=== PATIENT | female | born 1975 | race Caucasian/White ===

== ENCOUNTER 2018-05-20 14:13 | Emergency (ER) | payer BC, SELFPAY ==
[2018-05-20 14:15] VITALS: BP 162/96; PULSE 86; RESP 16; TEMP 36.8; O2SAT 98; BMI 33.2
--- NOTE | 2018-05-20 14:43 | RAD_ITS ---
STUDY: X-RAY - LEFT ELBOW REASON FOR EXAM: Female, 42 years old. Pain TECHNIQUE: 3 view(s) of the elbow. COMPARISON: None. FINDINGS: Normal visualized humerus, radius and ulna. Normal radiocapitellar and ulnotrochlear articulations. The soft tissue structures are unremarkable. RAD/Elbow min 3 Views IMPRESSION: Normal x-ray examination of the elbow. Electronically Signed: Ranjeet Baig MD at 15:28 EST , Service support ,
--- NOTE | 2018-05-20 14:43 | CT_ITS ---
STUDY: CT CERVICAL SPINE WITHOUT CONTRAST REASON FOR EXAM: Female, 42 years old. Neck pain after trauma RADIATION DOSAGE (If Supplied By Facility): CTDIvol = ( 23.88 ) mGy, DLP = ( 493.45 ) mGycm TECHNIQUE: High resolution transaxial imaging was performed without contrast material. Sagittal and coronal images were reconstructed. Individualized dose optimization techniques were used for this CT. COMPARISON: None FINDINGS: Normal craniovertebral junction. Normal anterior atlantoaxial articulation. Normal odontoid process. There is straightening of the normal cervical lordosis. Normal vertebral bodies and posterior osseous elements. C2-3: Normal endplates. Normal disc height and morphology. Normal central canal and intervertebral neuroforamina. C3-4: Normal endplates. Normal disc height and morphology. Normal central canal and intervertebral neuroforamina. C4-5: Normal endplates. Normal disc height and morphology. Normal central canal and intervertebral neuroforamina. C5-6: Normal endplates. Normal disc height and morphology. Normal central canal and intervertebral neuroforamina. C6-7: Normal endplates. Normal disc height and morphology. Normal central canal and intervertebral neuroforamina. C7-T1: Normal endplates. Normal disc height and morphology. Normal central canal and intervertebral neuroforamina. Normal visualized soft tissue structures. CT/Spine Cervical without Contras IMPRESSION: Normal unenhanced CT examination of the cervical spine. Electronically Signed: Ranjeet Baig MD at 15:27 EST , Service support ,
--- NOTE | 2018-05-20 14:43 | CT_ITS ---
STUDY: CT LUMBAR SPINE WITHOUT CONTRAST REASON FOR EXAM: Female, 42 years old. Low back pain after a fall RADIATION DOSAGE (If Supplied By Facility): CTDIvol = ( 20.87 ) mGy, DLP = ( 689.78 ) mGycm TECHNIQUE: The patient was scanned in a multi detector CT scanner. High resolution transaxial imaging was performed. Images were obtained from mid T11 to the lower coccyx. Sagittal and coronal images were reconstructed. Individualized dose optimization techniques were used for this CT. COMPARISON: None FINDINGS: Normal lumbar lordosis. There is no substantial scoliosis. Normal vertebrae of the lumbar spine. L1-2: Normal endplates. Normal disc height and morphology. Normal bilateral facet joints. Normal central canal and bilateral lateral recesses. Normal bilateral intervertebral neural foramina. L2-3: Normal endplates. Normal disc height and morphology. Normal bilateral facet joints. Normal central canal and bilateral lateral recesses. Normal bilateral intervertebral neural foramina. L3-4: Normal endplates. Normal disc height and morphology. Normal bilateral facet joints. Normal central canal and bilateral lateral recesses. Normal bilateral intervertebral neural foramina. L4-5: Normal endplates. Normal disc height and morphology. Normal bilateral facet joints. Normal central canal and bilateral lateral recesses. Normal bilateral intervertebral neural foramina. L5-S1: Normal endplates. Normal disc height and morphology. Normal bilateral facet joints. Normal central canal and bilateral lateral recesses. Normal bilateral intervertebral neural foramina. Normal visualized paraspinous soft tissue structures. CT/Spine Lumbar without Contrast IMPRESSION: Normal unenhanced CT examination of the lumbar spine. Electronically Signed: Ranjeet Baig MD at 15:27 EST , Service support ,
--- NOTE | 2018-05-20 16:15 | ED.VISSUMM ---
- ER Visit Summary Date of Service: 05/20/18 Chief Complaint: Back injury History of Present Illness: The patient is a 42 F who slipped and fell on steps yesterday. No loss of conscious. She has bruising to low back. Pain to left elbow typically with extension. She also notes soreness in her neck. No paresthesias or muscle weakness. No bowel or bladder dysfunction Physical Examination: Afebrile vital signs stable Patient has diffuse tenderness throughout the cervical spine and paraspinal cervical musculature. There is a large purple ecchymotic area in the midline the lumbar spine. This area is tender to palpation. The left elbow is tender to palpation over the olecranon and shows some erythema and a superficial abrasion. There is no radial head tenderness. She has pain with full extension. Test Results: The cervical spine and CT lumbar spine were negative for acute fractures. X-rays of the left elbow were negative. Emergency Department Course and Treatment: Patient will be discharged home with conservative treatment. She will follow-up with primary care if not improving. Impression: 1. Cervical muscle strain 2. Back contusion 3. Left elbow contusion This note was generated with [employer] dictation software. It may contain incorrect words, spelling, and punctuation that were not noted in review of the chart prior to signing ED Disposition - Plan for ED Patient: Disposition: Home or Assisted Living Chief Complaint: Fall Instructions: ED Contusion Back Referrals: Sunil Forte MD [Primary Care Provider] - 10-14 Days if not better
[2018-05-20 16:38] VITALS: RESP 14
== END 2018-05-20 16:39 | disposition home or self-care (01) ==
PROVIDERS: Emergency Provider Emergency Medicine; Family Provider Family Medicine; PCP Family Medicine
DX: S16.1XXA Strain of muscle, fascia and tendon at neck level, initial encounter (principal); S39.92XA Unspecified injury of lower back, initial encounter; S50.02XA Contusion of left elbow, initial encounter; W01.0XXA Fall on same level from slipping, tripping and stumbling without subsequent striking against object, initial encounter; Y93.9 Activity, unspecified; Y92.89 Other specified places as the place of occurrence of the external cause; Y99.9 Unspecified external cause status; I10 Essential (primary) hypertension
CPT/HCPCS: 72125; 72131; 73080; 99282

== ENCOUNTER 2021-09-02 15:22 | Outpatient (CLI) | payer BC, SELFPAY ==
[2021-09-02 17:54] LABS: CRP 2.99 mg/L (0.0-3.0)
[2021-09-02 17:59] LABS: Vitamin B12 535 pg/mL (211-911)
[2021-09-04 16:11] LABS: Endomysial Antibody IgA Negative (Negative)
[2021-09-04 19:08] LABS: Immunoglobulin A 318 mg/dL (87-352); t-Transglutaminase IgA <2 U/mL (0-3)
== END 2021-09-02 23:59 | disposition home or self-care (01) ==
PROVIDERS: PCP Family Medicine; Referring Provider Internal Medicine Gastroenterology; Visit Provider Internal Medicine Gastroenterology
DX: R19.7 Diarrhea, unspecified (principal)
CPT/HCPCS: 36415; 82607; 82784; 83516; 86140; 86255

== ENCOUNTER → 2022-10-20 | Outpatient (CLI) | payer BC, SELFPAY ==
--- NOTE | 2022-10-20 06:44 | CT_ITS ---
STUDY: CT ABDOMEN AND PELVIS WITH AND WITHOUT CONTRAST REASON FOR EXAM: Female, 47 years old. Left lower quadrant and diffuse abdominal pain for one and a half years. RADIATION DOSAGE (If Supplied By Facility): CTDIvol = ( 17.38 ) mGy, DLP = ( 2655.66 ) mGycm TECHNIQUE: Transaxial images were obtained from the dome of the diaphragm to the symphysis pubis without oral contrast. IV 100mL [id number]-[id number] was administered. Sagittal and coronal images were reconstructed. Individualized dose optimization techniques were used for this CT. COMPARISON: None. FINDINGS: The visualized lung bases are unremarkable. The visualized portions of the heart are within normal limits. Normal liver. There are surgical clips in the gallbladder fossa consistent with a prior cholecystectomy. Normal spleen. Normal pancreas. Normal bilateral adrenal glands. Normal right kidney. Tiny nonobstructive calculus is seen in the upper pole calyx of the left kidney. Incidental note is made of a left retroaortic renal vein. There is a small hiatal hernia. Normal small intestine. Normal colon. The appendix is visualized and appears normal. Normal abdominal aorta. Normal inferior vena cava. There is borderline retroperitoneal lymphadenopathy with enlarged nodes no greater than 10mm in the short axis diameter. Normal urinary bladder. Follicles are seen in the left ovary. Normal abdominal wall. Normal osseous structures. CT/CT Abd/Pelvis W/WO Contrast IMPRESSION: Tiny nonobstructive calculus is seen in the upper pole calyx of the left kidney. Electronically Signed: Kingston Mota MD at 15:05 EDT ,
== END | disposition home or self-care (01) ==
PROVIDERS: PCP Nurse Practitioner Primary Care; Referring Provider Urology; Visit Provider Urology
DX: R10.30 Lower abdominal pain, unspecified (principal)
CPT/HCPCS: 74178; Q9967